=== PATIENT | female | born 1980 | race Caucasian/White ===

== ENCOUNTER → 2017-02-19 | Outpatient (CLI) | payer OTHER ==
--- NOTE | 2017-02-21 09:47 | MM ---
Reason for exam: screening (asymptomatic). Baseline mammogram. History: Patient had first child at age 33. Family history of breast cancer in father at age 56. Reductions of both breasts, 2006. Took hormonal contraceptives beginning at age 17. Physical Findings: Nurse did not find any significant physical abnormalities on exam. MG Screening Mammo w CAD Bilateral CC and MLO view(s) were taken. There are scattered fibroglandular densities. Finding: There are coarse calcifications in the 12 o'clock anterior position of the right breast. There is no discrete abnormality. These results were verbally communicated with the patient and result sheet given to the patient on 02/19/17. ASSESSMENT: Benign, BI-RAD 2 RECOMMENDATION: Routine screening mammogram of both breasts at age 41.
== END | disposition home or self-care (01) ==
LOC: RADMAMWWP 13:04
PROVIDERS: ATTEND Obstetrics & Gynecology
DX: Z12.31 Encounter for screening mammogram for malignant neoplasm of breast (principal); Z80.3 Family history of malignant neoplasm of breast